=== PATIENT | male | born 1975 | race Caucasian/White ===

== ENCOUNTER 2018-11-26 16:48 | Emergency (ER) | payer MEDICAID ==
[~2018-11-26] VITALS: Ht 177.8 cm; Wt 100.0 kg
[~2018-11-26 16:48] MED LIST: EPIN0.3P8 IM; METH-360 PO
[2018-11-26] MEDS ORDERED: epiNEPHrine 1 mg/ml inj IM STA (16:57)
[2018-11-26] MEDS ORDERED: famotidine/PF 10 mg/ml inj IV ONE (17:00)
[2018-11-26] MEDS ORDERED: methylPREDNISolone sod succ 125mg/2ml vial IV ONE (17:00)
[2018-11-26] MEDS ORDERED: diphenhydrAMINE 50 mg/ml inj IV ONE (17:00)
[2018-11-26] MEDS ORDERED: METH4TAB3 PO (18:43)
[2018-11-26 19:03] VITALS: BP 148/78
== END 2018-11-26 19:07 | disposition home or self-care (01) ==
LOC: ER 16:49
DX: T78.40XA Allergy, unspecified, initial encounter (principal); L50.9 Urticaria, unspecified; R09.89 Other specified symptoms and signs involving the circulatory and respiratory systems; I10 Essential (primary) hypertension; G89.29 Other chronic pain; Z79.899 Other long term (current) drug therapy; X58.XXXA Exposure to other specified factors, initial encounter
CPT/HCPCS: 96372; 96374; 96375; 99284; J0171; J1200; J2930; J3490

== ENCOUNTER 2018-12-02 08:40 | Emergency (ER) | payer MEDICAID ==
[~2018-12-02] VITALS: Ht 177.8 cm; Wt 101.9 kg
[~2018-12-02 08:40] MED LIST changes: +METH4TAB3 PO
[2018-12-02] MEDS ORDERED: methylPREDNISolone sod succ 125mg/2ml vial IV ONE (08:55)
[2018-12-02] MEDS ORDERED: famotidine/PF 10 mg/ml inj IV ONE (08:55)
[2018-12-02] MEDS ORDERED: diphenhydrAMINE 50 mg/ml inj IV ONE (08:55)
[2018-12-02] MEDS ORDERED: METH4TAB3 PO (09:47)
--- NOTE | 2018-12-02 10:00 | NUR ---
Pt states he is no longer short of breath, and is resting comfortably.
[2018-12-02] MEDS ORDERED: EPIN0.3P3 SQ (10:24)
[2018-12-02 10:42] VITALS: BP 120/77
== END 2018-12-02 10:44 | disposition home or self-care (01) ==
LOC: ER 08:40
DX: T78.40XA Allergy, unspecified, initial encounter (principal); I10 Essential (primary) hypertension; Z72.89 Other problems related to lifestyle; X58.XXXA Exposure to other specified factors, initial encounter
CPT/HCPCS: 96374; 96375; 99283; J1200; J2930; J3490

== ENCOUNTER 2020-11-22 20:35 | Emergency (ER) | payer MEDICAID ==
[~2020-11-22] VITALS: Ht 177.8 cm; Wt 92.3 kg
[~2020-11-22 20:35] MED LIST changes: +EPIN0.3P3 IM; +EPIN0.3P3 SQ; +PRED20TA PO
[2020-11-22 20:54] VITALS: BP 142/79
[2020-11-22] MEDS ORDERED: PRED10TA23 PO (21:44)
[2020-11-22] MEDS ORDERED: HYDR28CR14 TOP (21:44)
[2020-11-22] MEDS ORDERED: triamcinolone acetonide 40mg/ml inj IM ONE (21:45)
== END 2020-11-22 21:56 | disposition home or self-care (01) ==
LOC: ER 20:36
DX: L23.7 Allergic contact dermatitis due to plants, except food (principal); G89.29 Other chronic pain; I10 Essential (primary) hypertension; Z72.89 Other problems related to lifestyle; Z79.899 Other long term (current) drug therapy
CPT/HCPCS: 96372; 99283; J3301

== ENCOUNTER 2021-05-05 07:14 | Inpatient (IN) | payer MEDICAID ==
[2021-04-30 16:09] LABS: BASOPHILS # (AUTO) 0.1 X10'3 (0-0.2); BASOPHILS % (AUTO) 0.8 % (0-1); EOSINOPHILS # (AUTO) 0.4 X10'3 (0-0.9); EOSINOPHILS % (AUTO) 4.5 % (0-6); LYMPHOCYTES # (AUTO) 1.5 X10'3 (1.1-4.8); LYMPHOCYTES % (AUTO) 19.2 % (21-51); MEAN CORPUSCULAR HEMOGLOBIN 30.3 PG (27.0-31.0); MEAN CORPUSCULAR HGB CONC 33.4 g/dL (33.0-36.5); MEAN CORPUSCULAR VOLUME 90.8 FL (78-98); MEAN PLATELET VOLUME 7.6 FL (7.4-10.4); MONOCYTES # (AUTO) 0.6 X10'3 (0-0.9); MONOCYTES % (AUTO) 7.9 % (2-12); NEUTROPHILS # (AUTO) 5.2 X10'3 (1.8-7.7); NEUTROPHILS % (AUTO) 67.6 % (42-75); PRE OP HEMATOCRIT 44.3 % (42.0-52.0); PRE OP HEMOGLOBIN 14.8 g/dL (14.0-17.9); PRE OP PLATELET COUNT 270 X10'3 (140-440); RED BLOOD COUNT 4.87 X10'6 (4.70-6.10); RED CELL DISTRIBUTION WIDTH 13.5 % (11.5-14.5)
[2021-04-30 16:24] LABS: ALBUMIN 4.2 G/DL (3.4-5.0); ALBUMIN/GLOBULIN RATIO 1.2 (1.1-1.5); ALKALINE PHOSPHATASE 73 IU/L (46-116); BLOOD UREA NITROGEN 25 MG/DL (7-18); BUN/CREATININE RATIO 24.3 (5.4-32.0); CALCIUM 9.2 MG/DL (8.5-10.1); CHLORIDE 103 MMOL/L (99-107); CREATININE 1.03 MG/DL (0.60-1.10); PRE OP ALT 50 U/L (30-65); PRE OP ANION GAP 9 (8-16); PRE OP AST 6 U/L (10-37); PRE OP BILIRUB, TOTAL 0.4 MG/DL (0.0-1.0); PRE OP GLUCOSE 169 MG/DL (70-104); PRE OP POTASSIUM 3.8 MMOL/L (3.4-5.1); PRE OP SODIUM 141 MMOL/L (135-145); TOTAL CARBON DIOXIDE 28.8 MMOL/L (24-32); TOTAL PROTEIN 7.8 G/DL (6.4-8.2); eGFR 78 ML/MIN
[2021-04-30 16:25] LABS: HEMOGLOBIN A1C 6.1 % (4.5-6.2)
[~2021-05-05] VITALS: Ht 177.8 cm; Wt 104.3 kg
[2021-05-05] VITALS (16 sets, daily range): BP systolic 105–158; BP diastolic 47–100
[~2021-05-05 07:14] MED LIST changes: -EPIN0.3P3 IM; -EPIN0.3P3 SQ; -EPIN0.3P8 IM; +HYDR-3972 PO; +METF-438 PO; -METH-360 PO; -METH4TAB3 PO; -PRED20TA PO; +acetaminophen 325mg tablet PO ONE; +cefazolin/dext.iso 2gm/100ml IV ONE; +celeCOXIB 100mg capsule PO ONE; +famotidine 20mg tablet PO ONE; +gabapentin 300mg capsule PO ONE; +metoclopramide 5 mg/ml inj IV ONE; +oxyCODONE SR 10mg (sust. release) tab -2 tabs (20mg) PO ONE; +ringers solution, lacted 1,000 ML IV SCH; +tranexamic acid 1gm/0.7% sal. 100 ML IV ONE; +vancomycin 1,500 MG in NS 300ml IV soln IV ONE
[2021-05-05] MEDS ORDERED: MESSAGE TO PHARMACY PO ONE (07:20)
[2021-05-05] MEDS ORDERED: glucagon, human recombinant 1mg kit SUBCUT PRN (07:20)
[2021-05-05] MEDS ORDERED: HYDROcodone/acetaminophen 10/325mg tab PO PRN (07:20)
[2021-05-05] MEDS ORDERED: magnesium hydroxide 30ml (MOM) UD suspension PO PRN (07:20)
[2021-05-05] MEDS ORDERED: ondansetron/PF 4mg/2ml inj IV PRN ×3 (07:20→11:35)
[2021-05-05] MEDS ORDERED: dextrose ORAL solution 15 GM/59 ML bottle PO PRN ×2 (07:20)
[2021-05-05] MEDS ORDERED: insulin Lispro (HumaLOG) vial - multi-dose SQ SCH (07:20)
[2021-05-05] MEDS ORDERED: HYDROmorphone 1 mg/ml syringe IV PRN (07:20)
[2021-05-05] MEDS ORDERED: diphenhydrAMINE 25mg capsule PO PRN ×2 (07:20→14:30)
[2021-05-05] MEDS ORDERED: HYDROmorphone inj. 0.5 MG/0.5 ML DISP.SYRIN IV PRN (07:20)
[2021-05-05] MEDS ORDERED: acetaminophen 325mg tablet PO PRN (07:20)
[2021-05-05] MEDS ORDERED: dextrose 50%-water 50ml dispensing syringe IV PRN ×2 (07:20)
[2021-05-05] MEDS: multivitamins, therapeutics tablet PO SCH (08:00)
[2021-05-05] MEDS: ascorbic acid 500mg tablet PO SCH ×2 (08:00→20:42)
[2021-05-05] MEDS: aspirin 325mg tablet PO SCH (08:30)
[2021-05-05] MEDS ORDERED: proCHLORperazine 10 MG/2 ml inj IV PRN (08:35)
[2021-05-05] MEDS ORDERED: morphine 4 MG/ML inj SYRINge IV PRN (08:35)
[2021-05-05] MEDS ORDERED: morphine 2 MG/ML inj. syringe IV PRN (08:35)
[2021-05-05] MEDS ORDERED: ringers solution, lacted 1,000 ML IV SCH (08:35)
[2021-05-05] MEDS ORDERED: meperidine/PF 25mg/ml syringe IV PRN ×3 (08:35)
[2021-05-05] MEDS ORDERED: ketorolac trometh. 30mg/ml inj. ONE (09:03)
[2021-05-05] MEDS ORDERED: epiNEPHrine 1 mg/ml inj ONE (09:04)
[2021-05-05] MEDS ORDERED: vancomycin 1,000mg inj ONE (09:04)
[2021-05-05] MEDS ORDERED: ROPIVAcaine 0.5% (5mg/ml) 30ml vial ONE (09:04)
[2021-05-05] MEDS ORDERED: cloNIDine hcl/PF 100mcg/ml inj ONE (09:04)
[2021-05-05] MEDS ORDERED: morphine /PF 1mg/ml 10ml inj. ONE (09:41)
[2021-05-05] MEDS ORDERED: fentaNYL/PF 50MCG/1 ML 2ML syringe ONE (09:41)
[2021-05-05] MEDS ORDERED: MIDAZolam 1mg/ml 10ml vial ONE (09:41)
--- NOTE | 2021-05-05 11:28 | NUR ---
Received from OR via ORTHO BED WITH [facility] , accompanied by Anesthesiologist SEBASTIAN and report given by Anesthesiolgist. PATIENT WITH SPINAL SENSATION LEVEL AT T11 AT THIS TIME. VSS. PATIENT WITH RIGHT HIP JOSE DRESSING THAT IS CDI. PATIENT WITH + DORSALIS PEDIS TO RIGHT FOOT. NO DRAINAGE PRESENT. Addendum: 05/05/21 at 1150 by Lobito Valladares RN, RN Amended: Links added.
[2021-05-05] MEDS ORDERED: naloxone 2mg/2ml inj 2 MG in normal saline 500ml IV soln 500 ML IV PRN (11:35)
[2021-05-05] MEDS ORDERED: diphenhydrAMINE 50 mg/ml inj IV PRN (11:35)
--- NOTE | 2021-05-05 12:14 | NUR ---
I have received report from EZEQUIEL Robin in recovery and had the opportunity to ask questions and assume patient care. Will await pts arrival to the floor.
--- NOTE | 2021-05-05 12:18 | NUR ---
PATIENT HAS MET ALL CRITERIA FOR TRANSFER TO THE SURGICAL/[facility]/PCU/ORTHO/ICU FLOOR. VSS. DRESSINGS INTACT. BED LOW, CALL LIGHT PRESENT AND 2 RAILS UP. RN PRESENT TO ACCEPT CARE OF PATIENT AND REPORT HAS BEEN CALLED. ALL QUESTIONS ANSWERED TO ACCEPTING RN. ORE MINER PRESENT TO REPLACE VS MACHINE AND PLACE ON VITALS. Addendum: 05/05/21 at 1242 by Lobito Valladares RN RN Amended: Links added.
--- NOTE | 2021-05-05 12:24 | NUR ---
PT ARRIVED ON THE FLOOR IN STABLE CONDITION
[2021-05-05] MEDS ORDERED: tranexamic acid 1gm/0.7% sal. 100 ML IV ONE (14:30)
[2021-05-05] MEDS ORDERED: bisacodyl 10mg suppository rectal RC PRN (14:30)
[2021-05-05] MEDS: gabapentin 300mg capsule PO SCH ×2 (15:41→20:43)
[2021-05-05] MEDS: HYDROcodone/acetaminophen 10/325mg tab PO PRN (16:02)
[2021-05-05] MEDS: cefazolin/dext.iso 2gm/100ml 100 ML IV SCH (17:02)
--- NOTE | 2021-05-05 18:17 | NUR ---
Problems reprioritized. Patient report given, questions answered & plan of care reviewed with EZEQUIEL PECK.
[2021-05-05] MEDS: potassium cl 20mEq in 1/2 NS 1,000 ML IV SCH ×2 (20:43→22:00)
[2021-05-05] MEDS ORDERED: VANCOMYCIN 1,500MG inj. 1,500 MG in normal saline 500ml IV soln 500 ML IV SCH (21:00)
[2021-05-05] MEDS ORDERED: sennosides 8.6mg tablet PO SCH (21:00)
[2021-05-05] MEDS ORDERED: insulin glargine (Lantus) pen - multi-dose SQ SCH (21:00)
[2021-05-06] MEDS: cefazolin/dext.iso 2gm/100ml 100 ML IV SCH (00:13)
[2021-05-06] MEDS: HYDROcodone/acetaminophen 10/325mg tab PO PRN (03:56)
[2021-05-06 05:47] LABS: ANION GAP 6 (8-16); CHLORIDE 104 MMOL/L (99-107); POTASSIUM 4.2 MMOL/L (3.5-5.1); SODIUM 140 MMOL/L (135-145); TOTAL CARBON DIOXIDE 29.9 MMOL/L (24-32)
[2021-05-06 05:48] LABS: BASOPHILS % (AUTO) 0.5 % (0-1); EOSINOPHILS # (AUTO) 0.4 X10'3 (0-0.9); EOSINOPHILS % (AUTO) 5.5 % (0-6); HEMATOCRIT 38.5 % (42.0-52.0); HEMOGLOBIN 12.6 g/dl (14.0-17.9); LYMPHOCYTES # (AUTO) 1.1 X10'3 (1.1-4.8); LYMPHOCYTES % (AUTO) 16.4 % (21-51); MEAN CORPUSCULAR HEMOGLOBIN 29.9 PG (27.0-31.0); MEAN CORPUSCULAR HGB CONC 32.8 g/dL (33.0-36.5); MEAN CORPUSCULAR VOLUME 91.3 FL (78-98); MEAN PLATELET VOLUME 7.3 FL (7.4-10.4); MONOCYTES # (AUTO) 0.8 X10'3 (0-0.9); MONOCYTES % (AUTO) 12.1 % (2-12); NEUTROPHILS # (AUTO) 4.6 X10'3 (1.8-7.7); NEUTROPHILS % (AUTO) 65.5 % (42-75); PLATELET COUNT 225 X10'3 (140-440); RED BLOOD COUNT 4.22 X10'6 (4.70-6.10); RED CELL DISTRIBUTION WIDTH 13.5 % (11.5-14.5)
[2021-05-06 06:00] VITALS: BP 147/66
[2021-05-06] MEDS: potassium cl 20mEq in 1/2 NS 1,000 ML IV SCH (06:00)
--- NOTE | 2021-05-06 06:31 | NUR ---
Patient in room ORTHO 4024. I have received report from LIV NIEVES and had the opportunity to ask questions and assume patient care.
[2021-05-06] MEDS: multivitamins, therapeutics tablet PO SCH (07:22)
[2021-05-06] MEDS: gabapentin 300mg capsule PO SCH (07:22)
[2021-05-06] MEDS: ascorbic acid 500mg tablet PO SCH (07:25)
[2021-05-06] MEDS: aspirin 325mg tablet PO SCH (08:07)
[2021-05-06 10:00] VITALS: BP 126/67
--- NOTE | 2021-05-06 11:57 | NUR ---
PT DISCHARHED FACILITY AT 1200. BELONGINGS SENT WITH PT. IV REMOVED, TIP INTACT, NO COMPLICATIONS. PT EDUCATED ON POST OP CARE AND FOLLOW UP. ALL QUESTIONS/CONCERNS ANSWERED. PT DISCHARGED IN STABLE CONDITION TO HOME WITH IN PRIVATE VEHICLE
--- NOTE | 2021-05-06 13:16 | NUR ---
Joint surgery consult: Pt admit s/p R hip surgery this admit. Pt seen by MARIJA written/verbal high protein ed w/ RD contact information provided. Pt reports follows no CHO diet at home yet has empty doritos bag at bedside. MARIJA educated pt on importance of carbohydrate intake in addition to proteins for optimal wound healing post-op. Addendum: 05/06/21 at [address] Amended: Links added.
[2021-05-06] MEDS ORDERED: celeCOXIB 100mg capsule PO SCH (20:00)
== END 2021-05-06 11:55 | disposition home or self-care (01) | DRG 301 ==
LOC: PAS IN 07:14 → UNDOADMIN 07:14 → PAS IN 07:21 → EDSTATUS 10:00 → PAS IN 12:24 → ORTHO 4S 12:24
PROVIDERS: ADMIT Orthopaedic Surgery; ATTEND Orthopaedic Surgery
PROC: 0SR906Z Replacement of Right Hip Joint with Oxidized Zirconium on Polyethylene Synthetic Substitute, Open Approach (ICD-10-PCS; principal; 2021-05-05 09:47)
DX: M16.11 Unilateral primary osteoarthritis, right hip (principal); D62 Acute posthemorrhagic anemia; Z79.82 Long term (current) use of aspirin; Z79.899 Other long term (current) drug therapy
CPT/HCPCS: 36415; 71046; 72170; 76937; 80051; 80053; 82948; 83036; 85025; 86885; 86900; 86901; 87081; 87635; 97116; 97161; 97530; A7000; C1776; G0378; J0171; J0735; J1815; J1885; J2250; J2270; J2765; J2795; J3010; J3370; J3480; J7040; J7120

== ENCOUNTER 2024-07-26 10:26 | Emergency (ER) | payer MEDICAID ==
[~2024-07-26] VITALS: Ht 175.3 cm; Wt 93.2 kg
[~2024-07-26 10:26] MED LIST changes: -acetaminophen 325mg tablet PO ONE; -cefazolin/dext.iso 2gm/100ml IV ONE; -celeCOXIB 100mg capsule PO ONE; -famotidine 20mg tablet PO ONE; -gabapentin 300mg capsule PO ONE; -metoclopramide 5 mg/ml inj IV ONE; -oxyCODONE SR 10mg (sust. release) tab -2 tabs (20mg) PO ONE; -ringers solution, lacted 1,000 ML IV SCH; -tranexamic acid 1gm/0.7% sal. 100 ML IV ONE; -vancomycin 1,500 MG in NS 300ml IV soln IV ONE
[2024-07-26 10:27] VITALS: BP 124/69; PULSE 85; TEMP 98.5; O2SAT 96
[2024-07-26] MEDS ORDERED: LEG1EACH88 (11:59)
[2024-07-26] MEDS ORDERED: ACET-1008 PO (11:59)
[2024-07-26 12:31] VITALS: RESP 16
[2024-07-26] MEDS: ketorolac trometh 15mg/ml vial 15 MG/ML ML IM ONE (12:31)
== END 2024-07-26 12:35 | disposition home or self-care (01) ==
LOC: ER 10:27
DX: M25.562 Pain in left knee (principal); M25.462 Effusion, left knee; M23.8X2 Other internal derangements of left knee; I10 Essential (primary) hypertension; G89.29 Other chronic pain; M54.9 Dorsalgia, unspecified; Z79.84 Long term (current) use of oral hypoglycemic drugs; Z79.1 Long term (current) use of non-steroidal anti-inflammatories (NSAID); Z91.018 Allergy to other foods; Z72.89 Other problems related to lifestyle
CPT/HCPCS: 29505; 73564; 96372; 99283; J1885